=== PATIENT | female | born 2000 | race Caucasian/White ===

== ENCOUNTER 2022-01-01 13:13 | Emergency (ER) | payer SELFPAY ==
[~2022-01-01] VITALS: Ht 157.5 cm; Wt 72.6 kg
[2022-01-01 13:22] VITALS: BP 125/66
--- NOTE | 2022-01-01 13:22 | NUR ---
Patient ambulated with steady gait to bed 4.
--- NOTE | 2022-01-01 13:23 | NUR ---
PA Vitale at bedside evaluating patient.
[2022-01-01] MEDS ORDERED: IBUPROFEN 600 MG TAB PO ONE (13:30)
[2022-01-01] MEDS ORDERED: IBUP-2213 PO (13:31)
--- NOTE | 2022-01-01 13:40 | NUR ---
21 y/o female c/o left wrsit pain x 4 days. patient has a lump on wrist when palpating. pain only when moving 8/10 non-radiating. Patient took ibuprofen at 0930. Patient has movement and feeling on her left hand. Medical History: Denies Allergies: shrimp and penicillin
== END 2022-01-01 14:20 | disposition home or self-care (01) ==
LOC: MED 13:13
DX: M77.8 Other enthesopathies, not elsewhere classified (principal); Z79.1 Long term (current) use of non-steroidal anti-inflammatories (NSAID); Z88.0 Allergy status to penicillin; Z91.013 Allergy to seafood
CPT/HCPCS: 99283